=== PATIENT | male | born 1960 | race Two or more races ===

== ENCOUNTER → 2024-06-04 | Outpatient (CLI) | payer OTHER, MEDICAID | END | disposition home or self-care (01) | LOC: XYW 07:32 | PROVIDERS: ATTEND Internal Medicine | DX: I35.8 Other nonrheumatic aortic valve disorders (principal); I51.7 Cardiomegaly; R01.1 Cardiac murmur, unspecified | CPT/HCPCS: 93306 ==

== ENCOUNTER → 2024-06-06 | Outpatient (CLI) | payer OTHER, MEDICAID | END | disposition home or self-care (01) | LOC: XYW 09:46 | PROVIDERS: ATTEND Student in an Organized Health Care Education/Training Program | DX: R09.89 Other specified symptoms and signs involving the circulatory and respiratory systems (principal) | CPT/HCPCS: 93886 ==

== ENCOUNTER → 2024-06-19 | Outpatient (CLI) | payer OTHER, MEDICAID ==
[2024-06-19 09:28] LABS: Chloride 104 mmol/L (98-107); Potassium 4.9 mmol/L (3.5-5.1); Sodium 138 mmol/L (136-145)
[2024-06-19 09:29] LABS: Anion Gap 6 (5-15); Calcium 10.4 mg/dL (8.7-10.4); Carbon Dioxide 28 mmol/L (20-30)
[2024-06-19 09:34] LABS: BUN/Creatinine Ratio 9.5 (10.0-20.0); Blood Urea Nitrogen 11 mg/dL (9-23); Glucose 129 mg/dL (74-106); Triglycerides 138 mg/dL (< 150)
[2024-06-19 09:35] LABS: LDL Cholesterol 38 mg/dL (< 100)
[2024-06-19 09:36] LABS: Cholesterol 89 mg/dL (< 200); HDL Cholesterol 27 mg/dL (40-59)
[2024-06-19 09:48] LABS: Creatinine, Urine 69.85 mg/dL (30.0-125.0)
[2024-06-19 10:31] LABS: Prostate Specific Antigen 1.7 ng/mL (0.0-4.0)
== END | disposition home or self-care (01) ==
LOC: LAB 07:35
PROVIDERS: ATTEND Internal Medicine
DX: Z12.5 Encounter for screening for malignant neoplasm of prostate (principal); E11.22 Type 2 diabetes mellitus with diabetic chronic kidney disease; N18.31 Chronic kidney disease, stage 3a; R97.20 Elevated prostate specific antigen [PSA]; Z12.11 Encounter for screening for malignant neoplasm of colon
CPT/HCPCS: 36415; 80048; 80061; 82043; 82270; 82570; 82607; 83036; 84443; G0103; 84153

== ENCOUNTER → 2024-07-31 | Outpatient (CLI) | payer OTHER, MEDICAID ==
[2024-07-31 07:53] LABS: Chloride 106 mmol/L (98-107); Potassium 4.3 mmol/L (3.5-5.1); Sodium 139 mmol/L (136-145)
[2024-07-31 07:54] LABS: Anion Gap 7 (5-15); Carbon Dioxide 26 mmol/L (20-31)
[2024-07-31 07:55] LABS: Calcium 9.9 mg/dL (8.7-10.4)
[2024-07-31 07:59] LABS: Glucose 111 mg/dL (74-106)
[2024-07-31 08:00] LABS: BUN/Creatinine Ratio 8.9 (10.0-20.0); Blood Urea Nitrogen 10 mg/dL (9-23)
== END | disposition home or self-care (01) ==
LOC: LAB 07:10
PROVIDERS: ATTEND Internal Medicine
DX: E11.9 Type 2 diabetes mellitus without complications (principal)
CPT/HCPCS: 36415; 80048

== ENCOUNTER → 2024-09-18 | Outpatient (CLI) | payer OTHER, MEDICAID ==
[2024-09-18 08:45] LABS: Alanine Aminotransferase 36 U/L (7-40); Albumin 4.8 g/dL (3.2-4.8); Alkaline Phosphatase 70 U/L (46-116); Anion Gap 9 (5-15); Aspartate Aminotransferase 21 U/L (13-40); BUN/Creatinine Ratio 10.4 (10.0-20.0); Bilirubin, Total 0.6 mg/dL (0.2-1.0); Blood Urea Nitrogen 13 mg/dL (9-23); Carbon Dioxide 27 mmol/L (20-31); Chloride 102 mmol/L (98-107); Cholesterol 82 mg/dL (< 200); LDL Cholesterol 35 mg/dL (< 100); Potassium 4.4 mmol/L (3.5-5.1); Sodium 138 mmol/L (136-145); Total Protein 7.6 g/dL (5.7-8.2); Triglycerides 125 mg/dL (< 150)
[2024-09-18 08:46] LABS: Calcium 10.8 mg/dL (8.7-10.4); Glucose 135 mg/dL (74-106); HDL Cholesterol 27 mg/dL (40-59)
== END | disposition home or self-care (01) ==
LOC: LAB 07:57
PROVIDERS: ATTEND Internal Medicine
DX: E11.9 Type 2 diabetes mellitus without complications (principal); E78.5 Hyperlipidemia, unspecified
CPT/HCPCS: 36415; 80053; 80061; 83036

== ENCOUNTER → 2024-12-30 | Outpatient (CLI) | payer OTHER, MEDICAID ==
[~2024-12-30] MED LIST: PANT40TA2 PO
[2024-12-30 09:16] LABS: Creatinine, Urine 71.38 mg/dL (30.0-125.0)
[2024-12-30 09:18] LABS: Alkaline Phosphatase 64 U/L (46-116); Anion Gap 8 (5-15); Aspartate Aminotransferase 27 U/L (13-40); BUN/Creatinine Ratio 13.2 (10.0-20.0); Blood Urea Nitrogen 16 mg/dL (9-23); Calcium 10.2 mg/dL (8.7-10.4); Carbon Dioxide 26 mmol/L (20-31); Chloride 106 mmol/L (98-107); LDL Cholesterol 34 mg/dL (< 100); Potassium 4.7 mmol/L (3.5-5.1); Sodium 140 mmol/L (136-145); Total Protein 7.4 g/dL (5.7-8.2); Triglycerides 112 mg/dL (< 150)
[2024-12-30 09:19] LABS: Bilirubin, Total 0.7 mg/dL (0.2-1.0); Cholesterol 81 mg/dL (< 200)
[2024-12-30 09:39] LABS: Alanine Aminotransferase 42 U/L (7-40); Albumin 4.8 g/dL (3.2-4.8); Glucose 117 mg/dL (74-106); HDL Cholesterol 25 mg/dL (40-59)
== END | disposition home or self-care (01) ==
LOC: LAB 08:25
PROVIDERS: ATTEND Internal Medicine
DX: I10 Essential (primary) hypertension (principal); E11.9 Type 2 diabetes mellitus without complications; E78.5 Hyperlipidemia, unspecified
CPT/HCPCS: 36415; 80053; 80061; 82043; 82570; 83036

== ENCOUNTER → 2025-02-07 | Outpatient (CLI) | payer MEDICARE, MEDICAID ==
[2025-02-07 10:32] LABS: Chloride 107 mmol/L (98-107); Potassium 4.2 mmol/L (3.5-5.1); Sodium 141 mmol/L (136-145)
[2025-02-07 10:33] LABS: Anion Gap 8 (5-15); Calcium 10.2 mg/dL (8.7-10.4); Carbon Dioxide 26 mmol/L (20-31)
[2025-02-07 10:38] LABS: BUN/Creatinine Ratio 15.5 (10.0-20.0); Blood Urea Nitrogen 18 mg/dL (9-23)
[2025-02-07 10:40] LABS: Glucose 192 mg/dL (74-106)
== END | disposition home or self-care (01) ==
LOC: LAB 09:45
PROVIDERS: ATTEND Internal Medicine
DX: E11.9 Type 2 diabetes mellitus without complications (principal)
CPT/HCPCS: 36415; 80048

== ENCOUNTER → 2025-06-09 | Day surgery (SDC) | payer OTHER, MEDICAID ==
[2025-05-30 09:37] LABS: Hemoglobin 15.5 g/dL (13.5-17.5)
[2025-05-30 09:42] LABS: Hematocrit 46.1 % (41.0-53.0); Mean Corpuscular Hemoglobin 26.5 pg (28.0-32.0); Mean Corpuscular Volume 79.1 fL (80.0-100.0)
[2025-05-30 10:00] LABS: INR 1.03 (0.9-1.15); Partial Thromboplastin Time 25.8 SEC (24.5-34.5); Prothrombin Time 10.9 sec (9.3-11.8)
[2025-05-30 10:12] LABS: Alkaline Phosphatase 65 U/L (46-116); Anion Gap 7 (5-15); BUN/Creatinine Ratio 8.5 (10.0-20.0); Blood Urea Nitrogen 11 mg/dL (9-23); Calcium 9.6 mg/dL (8.7-10.4); Carbon Dioxide 28 mmol/L (20-31); Chloride 105 mmol/L (98-107); Potassium 5.1 mmol/L (3.5-5.1); Sodium 140 mmol/L (136-145); Total Protein 7.3 g/dL (5.7-8.2)
[2025-05-30 10:13] LABS: Bilirubin, Total 0.7 mg/dL (0.2-1.0)
[2025-05-30 10:17] LABS: Alanine Aminotransferase 42 U/L (7-40); Albumin 4.9 g/dL (3.2-4.8); Glucose 111 mg/dL (74-106)
[2025-05-30 11:05] LABS: Total Cells Counted 100.0 (100)
[~2025-06-09] VITALS: Ht 165.1 cm; Wt 77.1 kg
[~2025-06-09] MED LIST changes: +ACCU-CHEK COMFORT CURVE STRIP VI ONE; +ASPI81CH59 PO; +DOXA4TAB83 PO; +DULO20CA PO; +EMPA1TAB PO; +EZET10TA22 PO; +FINE20TA PO; +FLUO40CA PO; +HYDROmorphone HCL 2 MG/ML VL/or syr IV PRN; +INSLANTI SC; +KETAMINE 50mg/ML 1ml syringe ONE; +KETOROLAC TROMETH 30 MG/ML 1ML VIAL IV ONE; +LIDOCAINE 1% INJ PF 5ML AMP ONE; +METOCLOPRAMIDE HCL 5MG/ml INJ 2ml VIAL IV PRN; +MIDAZOLAM HCL 2MG/2ML 2ml VIAL (1mg/ml) ONE; +MORPHINE SULFATE 4 MG/ML SYR/VIAL IV PRN; +MORPHINE SULFATE INJ 2 MG/ml SYRG IV PRN; +PROPOFOL 10 MG/ML 20 ML IV ONE; +SEMA2INJ3 SC; +SODIUM CHLORIDE LOCK 10 ML ONE; +ZOLP12.569 PO; +fentaNYL CITRATE 100 MCG/2 ML VL ONE
[2025-06-09 14:01] VITALS: PULSE 61; RESP 12; O2SAT 99
[2025-06-09 14:31] VITALS: BP 124/70; PULSE 62; RESP 14; O2SAT 98
--- NOTE | 2025-06-09 14:47 | DVHOP2 ---
Operative Report DATE OF OPERATION: 06/09/25 PROCEDURE: Colonoscopy with hot snare polypectomy and cold biopsy polypectomy. PREOPERATIVE INDICATION: The patient is a 65 -year-old male undergoing colonoscopy for surveillance with personal history of colon polyps POSTOPERATIVE DIAGNOSES: 1. There were two 2 mm benign-appearing ascending colon polyp that was seen and removed via cold biopsy forceps 2. There were two less than 5 mm benign-appearing transverse colon polyps that were seen and removed by cold biopsy forceps 3. There were about four 2-3 mm benign-appearing descending colon polyps were seen and removed by cold biopsy forceps 4. There was a 1 cm benign-appearing sigmoid polyp that was seen and removed by hot snare polypectomy and two adjacent polyps were removed by cold biopsy forceps 5. 1+ internal hemorrhoids otherwise completely normal colonoscopy examination up to the cecum PROCEDURE PERFORMED BY: Marcella Richter M.D. SCOPE: Olympus videocolonoscope. ASA CLASS: 3. PREOPERATIVE MEDICATIONS: Dr. Carrie Garcia PROCEDURE IN DETAIL: After obtaining an informed consent, the patient was placed on left lateral decubitus position. He was then sedated with the above medications. A rectal examination was performed that was normal. The colonoscope was then passed through the anus into the rectosigmoid and through the descending, transverse, and ascending colon up to the cecum with visualization of the appendiceal orifice, base of the cecum and the ileocecal valve. The colonoscope was then withdrawn. In the ascending colon there were two less than 5 mm benign-appearing polyps were removed by cold biopsy forceps The transverse colon there were two less than 5 mm benign-appearing polyps were removed by cold biopsy forceps In the descending colon there were about four less than 5 mm benign-appearing polyps were seen and removed by cold biopsy forceps In the sigmoid there was a 1 cm polyp that was removed by hot snare polypectomy and two other adjacent polyps removed by cold biopsy forceps On retroflexion and straight on view patient had 1+ internal hemorrhoids. The patient tolerated the procedure well without difficulty. WITHDRAWAL TIME: 15 minutes QUALITY OF THE PREP: Weikert Bowel Prep score: 9. COMPLICATIONS : None SPECIMENS: Ascending colon polyp Transverse colon polyps Descending colon polyps Sigmoid polyps DISPOSITION: Stable D/C to home PLAN: 1. Repeat colonoscopy base on biopsy result likely in 1-2 years 2. Resume GI soft diet advance as tolerated or 3. Local anorectal hemorrhoidal care 4. Outpatient follow up with me in 2-4 weeks to review results and discuss further management MARCELLA RICHTER MD Jun 09, 2025 14:47
--- NOTE | 2025-06-09 15:01 | ECG ---
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
== END | disposition home or self-care (01) ==
LOC: GI 11:43
PROVIDERS: ATTEND Internal Medicine Gastroenterology
DX: Z12.11 Encounter for screening for malignant neoplasm of colon (principal); D12.2 Benign neoplasm of ascending colon; D12.4 Benign neoplasm of descending colon; D12.5 Benign neoplasm of sigmoid colon; D12.3 Benign neoplasm of transverse colon; K63.5 Polyp of colon; K64.8 Other hemorrhoids; I10 Essential (primary) hypertension; E11.9 Type 2 diabetes mellitus without complications; E78.00 Pure hypercholesterolemia, unspecified; F17.210 Nicotine dependence, cigarettes, uncomplicated; Z79.4 Long term (current) use of insulin; Z79.82 Long term (current) use of aspirin; Z79.899 Other long term (current) drug therapy; Z86.0101 Personal history of adenomatous and serrated colon polyps; Z98.890 Other specified postprocedural states
CPT/HCPCS: 36415; 45380; 45385; 80053; 82962; 85007; 85027; 85610; 85730; 88305; 93005; J2250; J2704; J3010; J7030

== ENCOUNTER 2025-06-30 10:15 | Outpatient (CLI) | payer OTHER, MEDICAID ==
[~2025-06-30 10:15] MED LIST changes: -ACCU-CHEK COMFORT CURVE STRIP VI ONE; -HYDROmorphone HCL 2 MG/ML VL/or syr IV PRN; -KETAMINE 50mg/ML 1ml syringe ONE; -KETOROLAC TROMETH 30 MG/ML 1ML VIAL IV ONE; -LIDOCAINE 1% INJ PF 5ML AMP ONE; -METOCLOPRAMIDE HCL 5MG/ml INJ 2ml VIAL IV PRN; -MIDAZOLAM HCL 2MG/2ML 2ml VIAL (1mg/ml) ONE; -MORPHINE SULFATE 4 MG/ML SYR/VIAL IV PRN; -MORPHINE SULFATE INJ 2 MG/ml SYRG IV PRN; -PROPOFOL 10 MG/ML 20 ML IV ONE; -SODIUM CHLORIDE LOCK 10 ML ONE; -fentaNYL CITRATE 100 MCG/2 ML VL ONE
[2025-06-30 11:37] LABS: Alanine Aminotransferase 34 U/L (7-40); Albumin 4.7 g/dL (3.2-4.8); Alkaline Phosphatase 63 U/L (46-116); Anion Gap 10 (5-15); BUN/Creatinine Ratio 13.1 (10.0-20.0); Bilirubin, Total 0.8 mg/dL (0.2-1.0); Blood Urea Nitrogen 16 mg/dL (9-23); Calcium 9.6 mg/dL (8.7-10.4); Carbon Dioxide 26 mmol/L (20-31); Chloride 104 mmol/L (98-107); Glucose 100 mg/dL (74-106); Potassium 4.8 mmol/L (3.5-5.1); Sodium 140 mmol/L (136-145); Total Protein 7.5 g/dL (5.7-8.2)
[2025-06-30 11:39] LABS: Microalb/Creat Ratio, Urine 32.0
== END 2025-06-30 17:00 | disposition home or self-care (01) ==
LOC: LAB 10:15
PROVIDERS: ATTEND Internal Medicine
DX: E11.9 Type 2 diabetes mellitus without complications (principal); E78.5 Hyperlipidemia, unspecified; Z12.11 Encounter for screening for malignant neoplasm of colon
CPT/HCPCS: 36415; 80053; 82043; 82270; 82570; 83036; 84153

== ENCOUNTER 2025-09-29 07:58 | Outpatient (CLI) | payer OTHER, MEDICAID ==
[2025-09-30 10:07] LABS: Anti-Nuclear Antibody Direct Negative (Negative); Anti-dsDNA Antibody <1 IU/mL (0-9); Antiscleroderma-70 Antibody <0.2 AI (0.0-0.9); Sjogren's Anti-SS-A Antibody <0.2 AI (0.0-0.9); Sjogren's Anti-SS-B Antibody <0.2 AI (0.0-0.9)
== END 2025-09-29 17:00 | disposition home or self-care (01) ==
LOC: LAB 07:58
PROVIDERS: ATTEND Internal Medicine
DX: E11.9 Type 2 diabetes mellitus without complications (principal); M25.539 Pain in unspecified wrist
CPT/HCPCS: 36415; 85652; 86141; 86160; 86225; 86235; 86376; 86431